=== PATIENT | female | born 1965 | race Caucasian/White ===

== ENCOUNTER → 2019-03-26 14:32 | Outpatient (CLI) | payer MEDICAID ==
[2013-04-01 09:51] VITALS: BMI 25.1
[~2019-03-26 14:32] MED LIST: ADDERALL XR 1515 M1; AMBIEN10 MG; ARMOUR THYROID120 MG; CELEXA10 MG; FLEXERIL10 MG; ULTRAM50 MG PO; ZOLOFT50 MG PO
== END | disposition home or self-care (01) ==
LOC: D.MRI 03-24 13:00
PROVIDERS: ATTEND Orthopaedic Surgery
DX: M25.552 Pain in left hip (principal)

== ENCOUNTER 2019-04-01 09:00 | Outpatient (CLI) | payer MEDICAID ==
[2013-04-01 09:51] VITALS: BMI 25.1
== END 2019-04-01 10:00 | disposition home or self-care (01) ==
LOC: D.MAMMO 09:00
PROVIDERS: ATTEND Nurse Practitioner
DX: Z12.31 Encounter for screening mammogram for malignant neoplasm of breast (principal)

== ENCOUNTER → 2019-06-03 12:47 | Outpatient (CLI) | payer MEDICAID ==
[2013-04-01 09:51] VITALS: BMI 25.1
== END | disposition home or self-care (01) ==
LOC: D.MRI 12:47
PROVIDERS: ATTEND Orthopaedic Surgery
DX: M84.352A Stress fracture, left femur, initial encounter for fracture (principal); X58.XXXA Exposure to other specified factors, initial encounter

== ENCOUNTER 2020-02-24 08:44 | Day surgery (SDC) | payer MEDICAID ==
[~2020-02-24] VITALS: Ht 160 cm; Wt 72.6 kg
[~2020-02-24 08:44] MED LIST changes: +MOBIC7.5 MG PO
[2020-02-24 09:01] LABS: HEMATOCRIT 42.2 % (36.0-48.0); HEMOGLOBIN 13.9 g/dL (12-16); MCH 30.5 pg (26.0-34.0); MCHC 32.9 g/dL (31.0-37.0); MCV 92.7 fL (80.0-100.0); MEAN PLATELET VOLUME 7.8 fL (7.4-10.4); RBC 4.55 10x6/uL (4.00-5.40); RDW 13.9 % (11.5-14.5); WBC 4.3 10x3/uL (4.8-10.8)
[2020-02-24 09:23] LABS: HCG SERUM NEGATIVE (NEGATIVE)
[2020-02-24 09:51] VITALS: BP 106/86; Ht 160 cm; Wt 72.6 kg
[2020-02-24] MEDS ORDERED: HYDROCODON-ACE1 EA10 PO (11:16)
--- NOTE | 2020-02-24 12:55 | NUR ---
1150 IV REMOVED AND INSTRUCTIONS GIVEN. RX GIVEN. 1235 PT D/C HOME
--- NOTE | 2020-02-25 14:21 | OP ---
PATIENT NAME: TARA FERNANDES MEDICAL RECORD: [id number] :65 LOCATION:D[facility]OPS ADMISSION DATE: SURGEON: ERIN MILLER MD DATE OF OPERATION: 02/24/2020 PREOPERATIVE DIAGNOSES: 1. Carpal tunnel syndrome of the right hand. 2. Trigger finger of the right long finger. POSTOPERATIVE DIAGNOSES: 1. Carpal tunnel syndrome of the right hand. 2. Trigger finger of the right long finger. PROCEDURES: 1. Right carpal tunnel release. 2. Trigger finger release, right-hand long finger. SURGEON: Erin Miller MD WIND UP WORKER: RAHUL Gonzales INTRAOPERATIVE COMPLICATIONS: None. SUMMARY OF PATHOLOGIC FINDINGS: The patient did have a very tight transverse carpal ligament. The patient also had a very tight A1 alisia of the long finger. OPERATIVE SUMMARY IN DETAIL: After obtaining the appropriate preoperative orthopedic surgery consent as well as anesthetic consultation, evaluation and clearance, the patient was brought to the operating room and placed on the operating table in supine position. After adequate general laryngeal mask was administered, tourniquet was placed about the proximal aspect of the right upper extremity. Right upper extremity was then prepped and draped in routine sterile fashion. The arm was elevated and exsanguinated, tourniquet was inflated to 250 mmHg. At this point, appropriate timeout was taken and agreed upon by all. Incision was made in line with the fourth metacarpal taken down on the distal aspect of the transverse carpal ligament and under direct visualization the transverse carpal ligament was incised to the proximal wrist crease with a combination of iris scissors and the [place] light knife under direct visualization. Having completed this, attention was turned to the trigger finger. Incision was made over the area of the A1 alisia of the right long finger. This was taken directly down to the A1 alisia, it was incised in its entirety. There were attritional changes seen in the tendon; however, no full thickness tearing was noted. Both wounds were irrigated and closed with 4-0 Prolene in interrupted fashion by RAHUL Gonzales. Sterile dressings were applied. Tourniquet was deflated. The patient was awakened and taken to the recovery room in stable condition. All final needle and sponge counts were correct. TRANSINT:[id number] Voice Confirmation ID: [id number] DOCUMENT ID: [id number] OPERATIVE REPORT [id number] TARA FERNANDES MD, ERIN HATCH at 1421 CC: [id number] DICTATION DATE: 02/25/20 1100 MEAT DEPARTMENT MANAGER: 02/25/20 1335 [facility] 02/24/20 [place] [id number] [place] [id number]
== END 2020-02-24 12:35 | disposition home or self-care (01) ==
LOC: D.OPS 08:44 → D.PAN 11:00 → D.OPS 12:15 → D.PAN 12:15 → D.OPS 12:35
PROVIDERS: Anesthesiology; ATTEND Orthopaedic Surgery
DX: G56.01 Carpal tunnel syndrome, right upper limb (principal); M65.331 Trigger finger, right middle finger

== ENCOUNTER 2020-03-13 06:44 | Day surgery (SDC) | payer MEDICAID ==
[~2020-03-13] VITALS: Ht 160 cm; Wt 72.6 kg
[~2020-03-13 06:44] MED LIST changes: +HYDROCODON-ACE1 EA10 PO
[2020-03-13 07:07] LABS: HEMATOCRIT 41.5 % (36.0-48.0); HEMOGLOBIN 13.9 g/dL (12-16); MCH 31.2 pg (26.0-34.0); MCHC 33.5 g/dL (31.0-37.0); MEAN PLATELET VOLUME 8.8 fL (7.4-10.4); RBC 4.46 10x6/uL (4.00-5.40); RDW 13.8 % (11.5-14.5); WBC 5.7 10x3/uL (4.8-10.8)
[2020-03-13 07:55] VITALS: BP 128/65; Ht 160 cm; Wt 72.6 kg
[2020-03-13] MEDS ORDERED: HYDROCODON-ACE1 EA10 PO (11:44)
--- NOTE | 2020-03-23 14:50 | OP ---
PATIENT NAME: TARA FERNANDES MEDICAL RECORD: [id number] :65 [facility] AD[facility]ION DATE: SURGEON: ERIN MILLER MD DATE OF OPERATION: 03/13/2020 PREOPERATIVE DIAGNOSIS: Minimally displaced distal pole scaphoid fracture. POSTOPERATIVE DIAGNOSIS: Minimally displaced distal pole scaphoid fracture. PROCEDURE: ORIF, scaphoid fracture. SURGEON: Erin Miller MD ANESTHESIA: General. INTRAOPERATIVE COMPLICATIONS: None. SUMMARY OF PATHOLOGIC FINDINGS: Consistent with preoperative diagnosis, she had a very distal pole scaphoid fracture without humpback deformity that required simple screw fixation. Screws is the Fixos cannulated screw system 3.5 x 18 mm compression screw. OPERATIVE SUMMARY IN DETAIL: After obtaining the appropriate preoperative orthopedic surgery consent as well as anesthetic consultation, evaluation and clearance, the patient was brought to the operating room and placed on the operating table in supine position. After adequate general laryngeal mask airway was administered, tourniquet was placed on the proximal aspect of the right upper extremity. Right upper extremity was then prepped and draped in routine sterile fashion. The arm was elevated and exsanguinated, tourniquet inflated to 250 mmHg. At this point, appropriate timeout was taken and agreed upon by all. Under direct fluoroscopic guidance, a guide pin for the Fixos 3.5 system was placed from the superior aspect of the scaphoid down to catch the inferior most aspect of the distal pole of the scaphoid. Once the pin was placed in the appropriate position, 18 mm screw was placed until the screw was seen to be in the subchondral surface of the proximal pole of the scaphoid and not penetrating distally. Final radiographs were submitted on AP, lateral and scaphoid planes for radiologist review. The wound irrigated and closed with 4-0 Prolene. Sterile dressings were applied. A thumb spica splint was applied. The patient was awakened and taken to recovery room in stable condition. All final needle and sponge counts were correct. TRANSINT:[id number] Voice Confirmation ID: [id number] DOCUMENT ID: [id number] ERIN MILLER MD at 1450 CC: [id number] DICTATION DATE: 03/23/20 1040 INDUSTRIAL ORGANIZATIONAL PSYCHOLOGIST: 03/23/20 1250 [facility] 03/13/20 [facility] [address] [facility] [address]
== END 2020-03-13 12:05 | disposition home or self-care (01) ==
LOC: D.OPS 06:44
PROVIDERS: Anesthesiology; ATTEND Orthopaedic Surgery
DX: G56.01 Carpal tunnel syndrome, right upper limb (principal); M25.531 Pain in right wrist; S62.001A Unspecified fracture of navicular [scaphoid] bone of right wrist, initial encounter for closed fracture; X58.XXXA Exposure to other specified factors, initial encounter

== ENCOUNTER 2020-04-24 11:15 | Outpatient (CLI) | payer MEDICAID ==
[2020-03-13 07:55] VITALS: BMI 28.4
--- NOTE | 2020-04-24 14:02 | NUR ---
PATIENT CONSENTED FOR A RIGHT SHOULDER ARTHROGRAM WITH MRI. TIME OUT PERFORMED 1355 BY MARYANN SHELL(R) AND DR SHIPLEY.
== END 2020-04-24 12:15 | disposition home or self-care (01) ==
LOC: D.RAD 11:15
PROVIDERS: ATTEND Orthopaedic Surgery
DX: S49.91XA Unspecified injury of right shoulder and upper arm, initial encounter (principal)

== ENCOUNTER 2020-05-04 08:20 | Day surgery (SDC) | payer MEDICAID ==
[2020-05-03 09:42] LABS: HEMATOCRIT 42.6 % (36.0-48.0); HEMOGLOBIN 14.3 g/dL (12-16); MCH 30.4 pg (26.0-34.0); MCHC 33.6 g/dL (31.0-37.0); MCV 90.6 fL (80.0-100.0); MEAN PLATELET VOLUME 8.9 fL (7.4-10.4); RBC 4.7 10x6/uL (4.00-5.40); RDW 13.7 % (11.5-14.5); WBC 6.5 10x3/uL (4.8-10.8)
[~2020-05-04] VITALS: Ht 160 cm; Wt 72.6 kg
[2020-05-04] MEDS ORDERED: ULTRAM50 MG PO (08:29)
[2020-05-04 09:00] VITALS: BP 131/85; Ht 160 cm; Wt 72.6 kg
[2020-05-04] MEDS ORDERED: HYDROCODON-ACE1 EA10 PO (11:04)
--- NOTE | 2020-05-04 13:35 | NUR ---
1250 IV D/C'D WITH CANNULA INTACT, PRESSURE HELD AND DRSG PLACED. DISCHARGE INSTRUCTIONS GIVEN AND PT VERBALIZED AN UNDERSTANDING. SLING AND WAIT MOUNT ADJUSTED. DRSG UNCHANGED. PT DENIES C/O
--- NOTE | 2020-05-10 13:14 | OP ---
PATIENT NAME: TARA DUMONT MEDICAL RECORD: [id number] :65 LOCATION:[facility] ADMISSION DATE: SURGEON: ERIN MILLER MD DATE OF OPERATION: 05/04/2020 PREOPERATIVE DIAGNOSES: Superior labrum anterior and posterior lesion with impingement syndrome. POSTOPERATIVE DIAGNOSES: 1. Superior labrum anterior and posterior lesion with impingement syndrome. 2. Rotator cuff tear of the right shoulder. PROCEDURES: 1. Arthroscopic rotator cuff repair of the right shoulder. 2. Arthroscopic SLAP repair of the right shoulder. 3. Arthroscopic distal clavicle excision done through separate incision - 1 cm. 4. Arthroscopic subacromial decompression, acromioplasty and bursectomy. SURGEON: Erin Miller MD PATCHER WOOD WELDER: RAHUL Gonzales INTRAOPERATIVE COMPLICATIONS: None. SUMMARY OF PATHOLOGIC FINDINGS: Consistent with the preoperative radiographs, Ms. Dumont did indeed have a labral tear. Unfortunately, she also had a rotator cuff tear and impingement findings as noted. OPERATIVE SUMMARY IN DETAIL: After obtaining the appropriate preoperative orthopedic surgery consent as well as anesthetic consultation, evaluation and clearance, the patient was brought to the operating room and placed on the operating table in supine position. After adequate general laryngeal mask airway was administered, the patient was placed in left lateral decubitus position. All pressure points were well padded to include down leg peroneal pad as well as axillary roll. The patient was held firmly to the operating table using the vacuum pack suction system. Right upper extremity and shoulder were prepped and draped in a routine sterile fashion. The arm was held in the Ar[employer] traction boom at 30 degrees of forward flexion, 30 degrees of abduction, 10 pounds of traction laterally. At this point, the appropriate timeout was taken and agreed upon by all given the patient's unique identifiers. Arthroscopy was established in the glenoid joint from the posterior portal. Anterior portal was established in the anterior safe interval. Diagnostic arthroscopy showed the patient to have a substantial bicipital labral tear. Preparations to the anterior glenoid and superior glenoid were created using both the arthroscopic rasp as well as the arthroscopic resector. Accessory tertiary portal was created and two labral tapes were then placed about the labrum and then anchored using the 2.9 PushLocks from [employer]. This resulted in excellent reapproximation of the labrum back to its appropriate position. Having completed this, attention was turned to the subacromial space. While in the subacromial space, [place] tissue ablation system was utilized to denude the undersurface of the acromion of all soft tissue elements and release the coracoacromial ligament. A 5-0 barrel bur was then used to perform acromioplasty at the level of acromioclavicular joint and then through the separate anterior arthroscopic portal, distal clavicle was excised for 1 cm under direct arthroscopic visualization. Having completed this, attention was OPERATIVE REPORT [id number] TARA DUMONT turned to the rotator cuff. Upon evaluating the rotator cuff on the superficial aspect, she was indeed found to have a near full thickness rotator cuff tear. Decortication was carried out of the greater tuberosity for reapproximation. An inverted mattress FiberTape was placed and anchored laterally with a 5.5 SwiveLock from [employer]. Having completed this, arthroscopy portals were closed in routine interrupted fashion using 4-0 Prolene. Sterile dressings were applied. The patient was awakened and taken to the recovery room in stable condition. All final needle and sponge counts were correct. TRANSINT:[id number] Voice Confirmation ID: [id number] DOCUMENT ID: [id number] PAUL HERNANDEZ, ERIN HATCH at 1314 CC: [id number] DICTATION DATE: 05/10/20 07 DIRECTOR VALIDATION: 05/10/20 1135 [facility] 05/04/20 [place] [id number] [place] [address]
== END 2020-05-04 12:55 | disposition home or self-care (01) ==
LOC: D.OPS 08:20 → D.PAN 09:45 → D.OPS 10:00 → D.PAN 12:15 → D.OPS 12:55
PROVIDERS: Anesthesiology; ATTEND Orthopaedic Surgery
DX: M25.511 Pain in right shoulder (principal); M75.101 Unspecified rotator cuff tear or rupture of right shoulder, not specified as traumatic; S49.91XA Unspecified injury of right shoulder and upper arm, initial encounter; X58.XXXA Exposure to other specified factors, initial encounter; M25.531 Pain in right wrist; G56.01 Carpal tunnel syndrome, right upper limb; S62.001A Unspecified fracture of navicular [scaphoid] bone of right wrist, initial encounter for closed fracture